=== PATIENT | male | born 1990 | race Caucasian/White ===

== ENCOUNTER 2017-07-10 17:33 | Emergency (ER) | payer BC ==
[~2017-07-10] VITALS: Ht 180.3 cm; Wt 119.6 kg
[~2017-07-10 17:33] MED LIST: PRAMCRE2 RE
[2017-07-10 17:38] VITALS: Ht 180.3 cm; Wt 119.6 kg
[2017-07-10 18:41] LABS: BASO % 0.3 %; BASO ABS # 0.02 K/uL (0-0.2); COMPLETE YES; EOS % 1.9 %; HEMATOCRIT 46.8 % (42-52); IG% 0.3 %; LYMPH ABS # 1.69 K/uL (1.2-3.4); MEAN CELL VOLUME 89.1 fL (80-100); MEAN CORPUSCULAR HEMOGLOBIN 31.2 pg (25-34); MEAN PLATELET VOLUME 10.4 fL (7.4-10.4); MONO % 7.8 %; NEUT % 64.7 %; PLATELET COUNT 218 K/uL (130-400); RED BLOOD COUNT 5.25 M/uL (4.7-6.1); WHITE BLOOD COUNT 6.76 K/uL (4.8-10.8)
--- NOTE | 2017-07-10 18:49 | EMERGENCY ROOM VISIT NOTE ---
History Report prepared by Nicole: Ashley Casillas Under the Supervision of: Yaya QuintanillaO. First contact with patient: 18:10 Chief Complaint: CHEST PAIN Stated Complaint: LIGHTHEADED,LEFT CHEST PAIN Nursing Triage Summary: pt reports started with midsternal cp this AM and it went away and then returned during dinner tonight denies sob or radiation reports dizzy feeling this AM History of Present Illness The patient is a 26 year old male who presents to the Emergency Room with complaints of intermittent chest pain that began this morning around 1200. The patient states that this morning while he was at [employer] he began experiencing some chest pain, that did not radiate. The patient states that this morning he did not have breakfast, noting he had 2 [employer] cheeseburgers at lunch. The patient notes he does not commonly eat fast food. He states that the episode lasted a few minutes and then went away. The patient notes that half way through dinner today he began experiencing chest pain again. During this episode , the patient notes he became lightheaded, pale, and what he describes as "clammy". The patient denies any shortness of breath, urinary symptoms, abdominal pain, leg cramping or swelling. He notes that he has never experienced symptoms like these before. He notes he takes multivitamins daily, but denies taking any other supplements or medications. The patient states he has not had any change in his weight. The notes states he has a family history of blood diseases and that his mother developed diabetes as she became older. He notes that his father might have hypertension, but he states he is unsure. 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 The patient denies any recent long car rides or airplane trips. Source of History: patient Onset: this morning, around 1200 Position: chest Symptom Intensity: 10 Quality: other (chest pain) Timing: other (intermittent) Associated Symptoms: No SOB Note: Associated symptoms include: lightheadedness, pallor. Review of Systems See HPI for pertinent positives & negatives. A total of 10 systems reviewed and were otherwise negative. Past Medical & Surgical Medical Problems: (1) Hemorrhoid Family History Diabetes mellitus Hypertension Social History Smoking Status: Never Smoker Alcohol Use: occasionally Drug Use: none Marital Status: in relationship Housing Status: lives with family Occupation Status: employed Current/Historical Medications No Active Prescriptions or Reported Meds Allergies Uncoded Allergies: SEASONAL (Allergy, Unknown, sneezing/watery eyes, 12/18/14) Physical Exam Vital Signs Date Time Temp Pulse Resp B/P (MAP) Pulse Ox O2 Delivery O2 Flow Rate FiO2 07/10/17 20:41 37.0 81 18 149/84 97 Room Air 07/10/17 20:02 80 18 142/88 95 Room Air 07/10/17 19:30 88 20 152/104 97 Room Air 07/10/17 18:20 91 07/10/17 17:38 36.9 102 20 168/108 97 Room Air Physical Exam HEENT: Head - normocephalic and atraumatic Pupils are equal, round, and reactive to light. Extraocular eye muscles are intact, and sclera are anicteric. Nose - moist nasal mucosa without discharge. Mouth - moist buccal mucosa. Oropharynx is nonerythematous and there is no tonsillar exudate or edema noted. Neck: Supple; no JVD, nuchal rigidity, cervical lymphadenopathy, or auscultated bruits. Heart: Regular rate and rhythm. There is a normal S1 and S2 with no murmurs, clicks, or gallops appreciated. Lungs: Clear to auscultation bilaterally with no wheezes, rales, or rhonchi. Abdomen: Soft, completely nontender, nondistended, with good bowel sounds. There are no palpable pulsatile masses or hepatosplenomegaly. There is no guarding, rigidity, or rebound noted. Extremities: No evidence of cyanosis, clubbing, or edema. There are easily palpable peripheral pulses. Skin: warm and dry with good turgor and no rashes. Medical Decision & Procedures ER Provider Diagnostic Interpretation: Radiology results as stated below per my review and the radiologist's interpretation: CT SCAN OF THE ABDOMEN AND PELVIS WITH IV CONTRAST CLINICAL HISTORY: Epigastric abdominal pain. Clinical concern for pancreatitis. COMPARISON STUDY: No priors. TECHNIQUE: Following the IV administration of 89 cc of Optiray 320, CT scan of the abdomen and pelvis is performed from the lung bases to the proximal femora. Images are reviewed in the axial, sagittal, and coronal planes. IV contrast was administered without complication. A dose lowering technique was utilized adhering to the principles of ALARA. CT DOSE: 1004.36 mGy.cm FINDINGS: Lung bases: The heart is normal in size and without pericardial effusion. There is a 3 mm right middle lobe pulmonary nodule seen on image #21. This is of doubtful significance in this age group. No airspace consolidation or pleural effusion is identified. Liver: The contrast-enhanced liver is normal in size and contour. The liver demonstrates diffusely diminished attenuation consistent with hepatic steatosis. There is no intrahepatic biliary ductal dilatation. The hepatic veins and portal veins are patent. Gallbladder: Contracted. Spleen: Normal in size and attenuation. Pancreas: The pancreas is normal in appearance. No peripancreatic inflammation or fluid is identified. The gland enhances homogeneously. The splenic vein is patent. Adrenal glands: Unremarkable. Kidneys: The contrast enhanced kidneys are normal in size and without hydronephrosis. The kidneys enhance symmetrically. Abdominal vasculature: The abdominal aorta is normal in course and caliber. Bowel: The small bowel and colon are normal in course and caliber. The appendix is well-visualized and normal. Peritoneum: There is no intraperitoneal free air or abdominal ascites. There is a small fat-containing umbilical hernia. Lymphadenopathy: None. Pelvic viscera: The bladder, prostate, and seminal vesicles are normal as visualized. Skeletal structures: No lytic or blastic lesions are seen. IMPRESSION: 1. There are no acute infectious or inflammatory findings in the abdomen or pelvis. Specifically, there is no CT evidence of acute pancreatitis as clinically queried. 2. Hepatic steatosis. Electronically signed by: Laci Albright M.D. 07/10/2017 8:18 PM SINGLE VIEW CHEST CLINICAL HISTORY: Atypical chest pain. FINDINGS: An AP, portable, upright chest radiograph is obtained. No prior studies are available for comparison at the time of dictation. The cardiomediastinal silhouette is unremarkable. There is minimal left basilar atelectasis. The lungs and pleural spaces are otherwise clear. No pneumothorax is seen. The bony thorax is grossly intact. IMPRESSION: No active disease in the chest. Electronically signed by: Laci Albright M.D. 07/10/2017 7:02 PM Laboratory Results 07/10/17 18:15 Red Blood Count 5.25, Mean Corpuscular Volume 89.1, Mean Corpuscular Hemoglobin 31.2, Mean Corpuscular Hemoglobin Concent 35.0, Mean Platelet Volume 10.4, Neutrophils (%) (Auto) 64.7, Lymphocytes (%) (Auto) 25.0, Monocytes (%) (Auto) 7.8, Eosinophils (%) (Auto) 1.9, Basophils (%) (Auto) 0.3, Neutrophils # (Auto) 4.37, Lymphocytes # (Auto) 1.69, Monocytes # (Auto) 0.53, Eosinophils # (Auto) 0.13, Basophils # (Auto) 0.02 07/10/17 18:15 Test 07/10/17 18:15 07/10/17 19:42 White Blood Count 6.76 K/uL (4.8-10.8) Red Blood Count 5.25 M/uL (4.7-6.1) Hemoglobin 16.4 g/dL (14.0-18.0) Hematocrit 46.8 % (42-52) Mean Corpuscular Volume 89.1 fL (80-100) Mean Corpuscular Hemoglobin 31.2 pg (25-34) Mean Corpuscular Hemoglobin Concent 35.0 g/dl (32-36) Platelet Count 218 K/uL (130-400) Mean Platelet Volume 10.4 fL (7.4-10.4) Neutrophils (%) (Auto) 64.7 % Lymphocytes (%) (Auto) 25.0 % Monocytes (%) (Auto) 7.8 % Eosinophils (%) (Auto) 1.9 % Basophils (%) (Auto) 0.3 % Neutrophils # (Auto) 4.37 K/uL (1.4-6.5) Lymphocytes # (Auto) 1.69 K/uL (1.2-3.4) Monocytes # (Auto) 0.53 K/uL (0.11-0.59) Eosinophils # (Auto) 0.13 K/uL (0-0.5) Basophils # (Auto) 0.02 K/uL (0-0.2) RDW Standard Deviation 41.0 fL (36.4-46.3) RDW Coefficient of Variation 12.7 % (11.5-14.5) Immature Granulocyte % (Auto) 0.3 % Immature Granulocyte # (Auto) 0.02 K/uL (0.00-0.02) Anion Gap 4.0 mmol/L (3-11) Est Creatinine Clear Calc Drug Dose 133.9 ml/min Estimated GFR () 106.8 Estimated GFR (Non- 92.2 BUN/Creatinine Ratio 13.2 (10-20) Calcium Level 9.4 mg/dl (8.5-10.1) Total Bilirubin 0.4 mg/dl (0.2-1) Direct Bilirubin 0.1 mg/dl (0-0.2) Aspartate Amino Transf (AST/SGOT) 32 U/L (15-37) Alanine Aminotransferase (ALT/SGPT) 79 U/L (12-78) Alkaline Phosphatase 59 U/L (45-117) Total Creatine Kinase 121 U/L (39-308) Creatine Kinase MB 0.7 ng/ml (0.5-3.6) Creatine Kinase MB Ratio 0.6 (0-3.0) Troponin I < 0.015 ng/ml (0-0.045) Total Protein 8.4 gm/dl (6.4-8.2) Albumin 4.2 gm/dl (3.4-5.0) Lipase 1285 U/L (73-393) Thyroid Stimulating Hormone (TSH) 1.130 uIu/ml (0.300-4.500) Urine Color YELLOW Urine Appearance CLEAR (CLEAR) Urine pH 7.5 (4.5-7.5) Urine Specific [place] 1.014 (1.000-1.030) Urine Protein NEG (NEG) Urine Glucose (UA) NEG (NEG) Urine Ketones NEG (NEG) Urine Occult Blood NEG (NEG) Urine Nitrite NEG (NEG) Urine Bilirubin NEG (NEG) Urine Urobilinogen NEG (NEG) Urine Leukocyte Esterase NEG (NEG) Laboratory results per my review. ECG Indication: chest pain Rate (beats per minute): 97 Rhythm: normal sinus Findings: no acute ischemic change, no ectopy Comparison ECG Date: no prior available ED Course 1819: Past medical records reviewed. The patient was evaluated in room B2. A complete history and physical exam was performed. An IV lock was initiated and labs are drawn as above. A twelve-lead EKG was obtained as described above. 1851: I reevaluated the patient. His blood pressure was still elevated. He had a chest x-ray as described above. 1926: I reevaluated the patient. I discussed some results and he verbalized complete understanding. His blood pressure was 152/104. 1941: I reevaluated the patient, who was resting comfortably. I discussed more findings with patient. The patient states that he had 5-6 drinks on Tuesday, 4-5 on Tuesday, and a few yesterday. 2014: The patient will go for CT scan of the abdomen/pelvis 2028: I reevaluated the patient, who was resting comfortably. His blood pressure decreased on its own. 2044: Upon reevaluation, the patient is resting comfortably. I discussed findings and results with the patient. He verbalized agreement of the treatment plan. The patient was discharged home. Medical Decision The patient is a 26 year old male who presents to the ED with chest pain. Differential diagnosis includes Hypertension Urgency, Anxiety, Pleurisy, Acute Coronary Syndrome, Cardiac Dysrhythmia. Lab results show: normal urinalysis, lipase: 1285H, normal TSH, glucose: 107H, normal renal function, normal white count, stable H&H. The patient was noted to be significantly hypertensive throughout his stay here in the emergency department. The blood pressure did come down on its own. He was found to have an elevated lipase but a CT scan with no evidence of pancreatitis. The patient's chest pain resolved on its own when he arrived here in the emergency department. I spent some time talking to the patient about his alcohol use and blood pressure. He left close follow-up with his PCP in the next 48 hours. If symptoms worsen, he should return to the emergency department immediately. Medication Reconcilliation Current Medication List: was personally reviewed by me Blood Pressure Screening Patient's blood pressure: Elevated blood pressure Blood pressure disposition: Referred to PCP Impression Primary Impression: Left sided chest pain Additional Impressions: Elevated lipase Hypertension Scribe Attestation The scribe's documentation has been prepared under my direction and personally reviewed by me in its entirety. I confirm that the note above accurately reflects all work, treatment, procedures, and medical decision making performed by me. Departure Information Dispostion Home / Self-Care Prescriptions No Active Prescriptions or Reported Meds Referrals Cesilia New M.D. (PCP) Forms HOME CARE DOCUMENTATION FORM, IMPORTANT VISIT INFORMATION Patient Instructions My [facility] Additional Instructions Return to the ER if you have any episodes of passing out or nearly passing out. Follow up this week with PCP about elevated lipase and high BP Keep a log of BPs Avoid all alcohol Problem Qualifiers Additional Impressions: Hypertension Hypertension type: unspecified Qualified Codes: I10 - Essential (primary) hypertension
--- NOTE | 2017-07-10 19:04 | DIAGNOSTIC IMAGING REPORT ---
SINGLE VIEW CHEST CLINICAL HISTORY: Atypical chest pain. FINDINGS: An AP, portable, upright chest radiograph is obtained. No prior studies are available for comparison at the time of dictation. The cardiomediastinal silhouette is unremarkable. There is minimal left basilar atelectasis. The lungs and pleural spaces are otherwise clear. No pneumothorax is seen. The bony thorax is grossly intact. IMPRESSION: No active disease in the chest. Electronically signed by: Laci Albright M.D. 07/10/2017 7:02 PM Dictated Date/Time: 07/10/2017 7:02 PM
[2017-07-10 19:13] LABS: ALT/SGPT 79 U/L (12-78); AST/SGOT 32 U/L (15-37); BLOOD UREA NITROGEN 15 mg/dl (7-18); BUN/CREATININE RATIO 13.2 (10-20); CALCIUM 9.4 mg/dl (8.5-10.1); CARBON DIOXIDE 31 mmol/L (21-32); CHLORIDE 102 mmol/L (98-107); GLUCOSE 107 mg/dl (70-99); POTASSIUM 3.4 mmol/L (3.5-5.1); SODIUM 137 mmol/L (136-145)
[2017-07-10 19:24] LABS: ALKALINE PHOSPHATASE 59 U/L (45-117); CKMB/CK RATIO 0.6 (0-3.0)
[2017-07-10 19:59] LABS: URINE APPEARANCE CLEAR (CLEAR); URINE BILIRUBIN NEG (NEG); URINE COLOR YELLOW; URINE NITRITE NEG (NEG); URINE PH 7.5 (4.5-7.5); URINE SPECIFIC GRAVITY 1.014 (1.000-1.030); UROBILINOGEN NEG (NEG)
[2017-07-10 20:02] LABS: MANUAL MICROSCOPIC REQUIRED? NO; REVIEW REQ? NO
[2017-07-10] MEDS ORDERED: OPTIRAY 320 IV PRN (20:15)
--- NOTE | 2017-07-10 20:19 | DIAGNOSTIC IMAGING REPORT ---
CT SCAN OF THE ABDOMEN AND PELVIS WITH IV CONTRAST CLINICAL HISTORY: Epigastric abdominal pain. Clinical concern for pancreatitis. COMPARISON STUDY: No priors. TECHNIQUE: Following the IV administration of 89 cc of Optiray 320, CT scan of the abdomen and pelvis is performed from the lung bases to the proximal femora. Images are reviewed in the axial, sagittal, and coronal planes. IV contrast was administered without complication. A dose lowering technique was utilized adhering to the principles of ALARA. CT DOSE: 1004.36 mGy.cm FINDINGS: Lung bases: The heart is normal in size and without pericardial effusion. There is a 3 mm right middle lobe pulmonary nodule seen on image #21. This is of doubtful significance in this age group. No airspace consolidation or pleural effusion is identified. Liver: The contrast-enhanced liver is normal in size and contour. The liver demonstrates diffusely diminished attenuation consistent with hepatic steatosis. There is no intrahepatic biliary ductal dilatation. The hepatic veins and portal veins are patent. Gallbladder: Contracted. Spleen: Normal in size and attenuation. Pancreas: The pancreas is normal in appearance. No peripancreatic inflammation or fluid is identified. The gland enhances homogeneously. The splenic vein is patent. Adrenal glands: Unremarkable. Kidneys: The contrast enhanced kidneys are normal in size and without hydronephrosis. The kidneys enhance symmetrically. Abdominal vasculature: The abdominal aorta is normal in course and caliber. Bowel: The small bowel and colon are normal in course and caliber. The appendix is well-visualized and normal. Peritoneum: There is no intraperitoneal free air or abdominal ascites. There is a small fat-containing umbilical hernia. Lymphadenopathy: None. Pelvic viscera: The bladder, prostate, and seminal vesicles are normal as visualized. Skeletal structures: No lytic or blastic lesions are seen. IMPRESSION: 1. There are no acute infectious or inflammatory findings in the abdomen or pelvis. Specifically, there is no CT evidence of acute pancreatitis as clinically queried. 2. Hepatic steatosis. Electronically signed by: Laci Albright M.D. 07/10/2017 8:18 PM Dictated Date/Time: 07/10/2017 8:12 PM
[2017-07-10 20:41] VITALS: BP 149/84; PULSE 81; TEMP 37; O2SAT 97
== END 2017-07-10 20:53 | disposition home or self-care (01) ==
LOC: C.EDB 17:34
DX: R07.9 Chest pain, unspecified (principal); I10 Essential (primary) hypertension; R74.8 Abnormal levels of other serum enzymes; Z83.3 Family history of diabetes mellitus; Z82.49 Family history of ischemic heart disease and other diseases of the circulatory system